=== PATIENT | male | born 1985 ===

== ENCOUNTER 2018-05-13 10:20 | Day surgery (SDC) | payer MEDICAID ==
--- NOTE | 2018-05-13 11:01 | PCM.SURG1 ---
Surgeon's Initial Post Op Note - Surgeon's Notes Surgeon: Joshua Wilson MD Pollution Control Chemist: NONE Type of Anesthesia: Local Pre-Operative Diagnosis: Cervical lymphadenopathy Operative Findings: US showed complex solid, hypoechoic jugugular chain lymph nodes. Post-Operative Diagnosis: Cervical lymphadenopathy Operation Performed: US guided FNA of left cervical lymph node. Specimen/Specimens Removed: 25 g FNA x 6 passes Estimated Blood Loss: EBL {In ML}: 1 Blood Products Given: N/A Drains Used: No Drains Post-Op Condition: Good Date of Surgery/Procedure: 05/13/18 Time of Surgery/Procedure: 11:00
[2018-05-13 11:02] VITALS: BMI 22.1
== END 2018-05-13 11:55 | disposition home or self-care (01) ==
LOC: C.SPRAD 10:20
PROVIDERS: ATTEND Radiology Vascular & Interventional Radiology
DX: R59.0 Localized enlarged lymph nodes (principal)

== ENCOUNTER 2018-05-14 05:46 | Day surgery (SDC) | payer MEDICAID ==
[2018-05-13 11:02] VITALS: BMI 22.1
[2018-05-14] MEDS ORDERED: ceFAZolin IV 1 gm in Dextrose 1 GM/50 ML BAG IVPB ONE (07:15)
[2018-05-14] MEDS ORDERED: Midazolam 2 MG/2 ML VIAL ONE (07:39)
[2018-05-14] MEDS ORDERED: Propofol 10 mg/ml Inj (20 ML) ONE (07:39)
[2018-05-14] MEDS ORDERED: Morphine 10 mg/5 ml Oral Soln PO PRN (08:06)
[2018-05-14] MEDS ORDERED: HYDROmorphone 0.5 mg/0.5 ml ISec IVP PRN (08:14)
[2018-05-14] MEDS ORDERED: Dextrose 5%/0.45% NS 1,000 ML IV SCH (08:15)
[2018-05-14 10:01] VITALS: RESP 18; TEMP 97.2; O2SAT 99
[2018-05-14 12:13] VITALS: BP 127/79; PULSE 81
--- NOTE | 2018-05-14 19:26 | OP ---
PROCEDURE DATE: 05/14/2018 PREOPERATIVE DIAGNOSIS: Chronic tonsillitis. POSTOPERATIVE DIAGNOSIS: Chronic tonsillitis. PROCEDURE: Tonsillectomy. SIGNIFICANT FINDINGS: Chronically infected tonsils. DESCRIPTION OF PROCEDURE: The patient was brought into room, placed in supine position. Anesthesia was initiated through an ET tube. The patient was draped in the usual manner. Mouth gag was placed in the oral cavity, opened and suspended on the [employer] painting supervisor the usual manner. Right tonsil was grabbed and pulled medially. Incision was made in the anterior tonsillar pillar using coblation. Dissections were done between tonsil and tonsillar fossa using coblation until the tonsil was removed. Bleeding was controlled using coblation. Next, the other tonsil was grabbed and pulled medially. Incision was made in the anterior tonsillar pillar using coblation. Dissections were done between tonsil and tonsillar fossa using coblation until the tonsil was removed. Bleeding was controlled using coblation. Both tonsillar beds were rubbed vigorously with coblation wand. No bleeding was noted. Mouth gag was let down for 30 seconds, put back up, no bleeding was noted. Mouth gag was taken down and removed. The patient was taken off anesthesia and taken to recovery room in stable manner. Ward Wang MD
--- NOTE | 2018-05-15 23:57 | CARD ---
APPROVED REPORT Date of service: 05/14/2018 EKG Measurement Heart [id number] <Conclusion> Normal sinus rhythm Normal ECG
== END 2018-05-14 12:12 | disposition home or self-care (01) ==
LOC: C.SDS 05:46
PROVIDERS: ATTEND Otolaryngology
DX: J35.01 Chronic tonsillitis (principal)
CPT/HCPCS: 42826; 88304; 93005; J0690; J2250; J2704; J3010